=== PATIENT | male | born 1960 | race African-American/Black ===

== ENCOUNTER 2016-07-13 12:31 | Inpatient (IN) | payer OTHER ==
[2016-07-13 12:41] VITALS: BMI 34.0
--- NOTE | 2016-07-13 12:54 | PDOC ---
History of Present Illness <Michelle Orr - Last Filed: 07/13/16 13:45> - General History Source: Patient Exam Limitations: No Limitations - History of Present Illness Initial Comments: 07/13/16 12:54 The patient is a 56 year old male with significant past medical history of diabetes, DVT, and PE (on Edoxaban) who presents emergency department with a possible stroke. The patient states that he noted approximately 1 week ago, that his right hand felt weaker than his left hand He also noted last week that he had a moment when his speech was "low" He ate a banana and states that this resolved Pt was seen at the clinic on [facility] (for a routine check up) At some point, the patient noted again that his speech was "low". He is not clear on when this happened. He thinks it has improved He does not know how long his face has been asymmetric. His family is unable to clearly state if his face looked this way this morning He denies headache or head trauma 07/13/16 12:55 PMH: Diabetes, DVT, PE PSH: Filter placement, Right knee surgery, Left ankle surgery Medications: patient does not know (family member bringing medications, he knows he is not on Coumadin) ALL: NO KNOWN DRUG ALLERGIES Social: denies drug or cigarette use GENERAL/CONSTITUTIONAL: No: fever, chills, weakness, loss of appetite. HEAD, EYES, EARS, NOSE AND THROAT: No: change in vision, ear pain, discharge, sore throat, throat swelling. CARDIOVASCULAR: No: chest pain, lightheadedness, palpitations, syncope RESPIRATORY: No: cough, shortness of breath, wheezing, hemoptysis, stridor. GASTROINTESTINAL: No: nausea, vomiting, diarrhea, abdominal cramping, rectal bleeding, constipation. GENITOURINARY: No: dysuria, hematuria, frequency, urgency, flank pain. MUSCULOSKELETAL: No: back pain, neck pain, joint pain, muscle swelling or pain SKIN AND BREASTS: No: lesions, pallor, rash or easy bruising. 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 GENERAL: The patient is in no acute distress. HEAD: Normal with no signs of trauma. EYES: PERRLA, EOMI, sclera anicteric, conjunctiva clear. ENT: Ears normal, nares patent, oropharynx clear without exudates. Moist mucous membranes. NECK: Normal range of motion, supple LUNGS: Breath sounds equal, clear to auscultation bilaterally. No wheezes, and no crackles. HEART:Regular rate and rhythm, normal S1 and S2 without murmur, rub or gallop. ABDOMEN: Soft, nontender, normoactive bowel sounds. No guarding, no rebound. No masses palpable. EXTREMITIES: Normal range of motion, no edema. No clubbing or cyanosis. No erythema, or tenderness. NEUROLOGICAL: please see NIHSS MUSCULOSKELETAL: Back non-tender to palpation, no CVA tenderness SKIN: Warm, Dry, normal turgor, no rashes or lesions noted. 07/13/16 13:22 <[place] - Last Filed: 07/16/16 08:45> - General Chief Complaint: CVA/TIA Stated Complaint: RT ARM NUMBNESS Time Seen by Provider: 07/13/16 12:43 Past History <Michelle Orr - Last Filed: 07/13/16 13:45> - Past Medical History Diabetes: Yes (iddm) Other medical history: dvt - Psycho/Social/Smoking Cessation Hx Anxiety: No Suicidal Ideation: No Smoking History: Never smoked Have you smoked in the past 12 months: No Information on smoking cessation initiated: No Hx Alcohol Use: No Drug/Substance Use Hx: No Substance Use Type: None <[place] - Last Filed: 07/16/16 08:45> - Past Medical History Allergies/Adverse Reactions: Allergies Allergy/AdvReac Type Severity Reaction Status Date / Time No Known Allergies Allergy Verified 07/13/16 12:33 Home Medications: Ambulatory Orders Atorvastatin Ca [Lipitor] 20 mg PO HS 07/13/16 Docusate Sodium 100 mg PO DAILY 07/13/16 Edoxaban Tosylate [Savaysa] 60 mg PO DAILY 07/13/16 Furosemide [Lasix] 40 mg PO DAILY 07/13/16 Gabapentin 300 mg PO BID 07/13/16 Insulin (LOG) Aspart [NovoLOG -] 0 unit SQ DAILY 07/13/16 Insulin Degludec [Tresiba Flextouch U-100] 100 unit SQ ASDIR 07/13/16 Losartan Potassium 50 mg PO DAILY 07/13/16 Metformin HCl [Metformin HCl ER] 500 mg PO BID 07/13/16 Nateglinide [Starlix (Nf)] 120 mg PO TID 07/13/16 *Physical Exam - Vital Signs Last Vital Signs Temp Pulse Resp BP Pulse Ox 98.6 F 74 18 164/94 100 07/13/16 12:36 07/13/16 12:36 07/13/16 12:36 07/13/16 12:36 07/13/16 12:36 <Michelle Orr - Last Filed: 07/13/16 13:45> - Vital Signs Last Vital Signs Temp Pulse Resp BP Pulse Ox 98.6 F 74 18 164/94 100 07/13/16 12:36 07/13/16 12:36 07/13/16 12:36 07/13/16 12:36 07/13/16 12:36 <[place] - Last Filed: 07/16/16 08:45> NIH Stroke Scale - Last Known Well Date/Time & Onset Date Last Known Well: 07/13/16 Time Last Known Well: 12:00 - Initial Evaluation Level of consciousness: Alert Ask patient the month and their age: Answers both correctly Ask patient to open & close eyes; make fist and let go: Obeys both correctly Best gaze (horizontal eye movement): Normal Visual field testing: No visual field loss Facial paresis (Show teeth/raise eyebrows/close eyes tight): Minor paralysis ( flattened nasolabial fold, asymmetry on smiling) Motor Function: Left Arm: Normal Motor Function: Right Arm: Normal (extends arm 90 (or 45) degrees for 10 seconds without drift Motor Function: Left Leg: Normal (extends leg 30 degrees for 5 seconds without drift) Motor Function: Right Leg: Normal (extends leg 30 degrees for 5 seconds without drift) Limb Ataxia: No ataxia Sensory(Use pinprick test arms,legs,trunk,face/side to side): Normal Best language (Describe picture, name items, read sentences): No Aphasia Dysarthria (read several words): Mild to moderate slurring of words Extinction and Inattention: No abnormality - Total Score NIH Stroke Scale Score: 2 <[place] - Last Filed: 07/16/16 08:45> tPA Exclusion Checklist 0-3hr - Time Elapsed Date last known well: 07/13/16 Time last known well: 12:00 Elaspsed time: 2 Day(s) and 20 Hour(s) and 40 Minutes - Thrombolytic Therapy Candidate Is the patient eligible for Thrombolytic Therapy?: No - Exclusion Criteria 0-3hr SBP greater than 185 or DBP greater than 110mmHg despite tx: No Recent IC/spinal surgery,head trauma or stroke w/in last 3mo: No Hx of previous IC hemorrhage, IC neoplasm, AVM or aneurysm: No Active internal bleeding: No Blding diathesis(low plt ct, inc PTT,INR>1.7 or use of NOAC): Yes Symptoms suggest subarachnoid hemorrhage: No CT demonstrates multilobar infarct(>1/3 cerebral hemiphere): No Arterial puncture at noncompressible site in previous 7 days: No Blood glucose concentration less than 50mg/dL (2.7mmol/L): No - Relative Exclusion Criteria 0-3h Life expectancy <1yr/severe co-morbid illness/[employer] on admit: No : No Patient/family refused: No Rapid improvement: Yes Stroke severity too mild: Yes Recent acute NM (w/in previous 3 months): No Seizure at onset with postictal residual neuro impairments: No Major surgery or serious trauma w/in previous 14 days: No Recent GI or hemorrhage (w/in previous 21 days): No - Ineligibility reason(s) Reasons No tPA given: See reason(s) noted above <[place] - Last Filed: 07/16/16 08:45> Heart Score/ECG Review #1 ECG reviewed & interpreted by me at: 15:33 07/13/16 15:33 Sinus rhythm, rate of 66 bpm, axis nml No ST elevations or depressions T waves upright <[place] - Last Filed: 07/16/16 08:45> Critical Care Time/MDM Note - Medical Decision Making Note: 07/13/16 13:43 EXAM: Head CT INTERPRETED BY: Dr. Jaffe REVIEWED BY: Dr. West IMPRESSION: No CT evidence of acute intracranial pathology. EXAM: CXR INTERPRETED BY: Dr. Ambrocio REVIEWED BY: Dr. West IMPRESSION: Weak inspiration. Increased central markings with large heart. Documentation prepared by Michelle Orr, acting as medical front desk specialist for [place] MD. <Michelle Orr - Last Filed: 07/13/16 13:45> Total Critical Care Time: 35 Critical Care Statement: The care of this patient involved high complexity decision making to prevent further life threatening deterioration of the patient 's condition and/or to evalute & treat vital organ system(s) failure or risk of failure. - Medical Decision Making Note: 07/13/16 12:53 We have activated Code Lamas Head CT: No ICH 07/13/16 13:20 Pt called me to re evaluate him He is having speech difficulties He is answering is very short sentences and states he is confused 07/13/16 13:21 07/13/16 13:22 Laboratory Tests 07/13/16 12:55 WBC 5.8 Hgb 16.7 D Hct 50.8 H Plt Count 188 Neutrophils % 46.7 D Lymphocytes % 37.7 D Laboratory Tests 07/13/16 07/13/16 12:55 12:55 INR 1.04 Sodium 141 Potassium 4.2 Chloride 104 Carbon Dioxide 28 BUN 11 Creatinine 1.0 Random Glucose 128 H D Alkaline Phosphatase 63 Creatine Kinase 226 D Creatine Kinase Index 0.6 CK-MB (CK-2) 1.414 Troponin I < 0.02 07/13/16 13:35 Pt re assessed, his speech has improved These events were reviewed with Dr. 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
[2016-07-13 13:03] LABS: BASOPHIL 0.8 % (0-2.0); EOSINOPHIL 4.8 % (0-4.5); MCH 30.3 pg (25.7-33.7); MCHC 32.9 g/dl (32.0-35.9); MEAN CELL VOLUME 92.3 fl (80-96); MEAN PLT VOLUME 7.9 fl (7.5-11.1); NEUTROPHILS 46.7 % (42.8-82.8); PLATELET COUNT 188 K/MM3 (134-434); RDW 13.6 % (11.9-15.9); WHITE BLOOD COUNT 5.8 K/mm3 (4.0-10.0)
[2016-07-13 13:14] LABS: INR 1.04 (0.82-1.09); PROTHROMBIN TIME (PATIENT) 11.4 SEC (9.98-11.88)
[2016-07-13 13:30] LABS: ALBUMIN 3.7 g/dl (3.4-5.0); ALK PHOS 63 U/L (45-117); ANION GAP 9 (8-16); BILIRUBIN,TOTAL 0.7 mg/dL (0.2-1.0); CALCIUM 8.8 mg/dL (8.5-10.1); CO2 28 mmol/L (21-32); GLUCOSE,RANDOM 128 mg/dL (74-106); SGOT/AST 18 U/L (15-37); SGPT/ALT 30 U/L (12-78); TOT PROT 8.6 g/dl (6.4-8.2)
[2016-07-13 13:32] LABS: TROPONIN I < 0.02 ng/ml (0.00-0.05)
--- NOTE | 2016-07-13 14:06 | CONSULT ---
Consult Consult Specialty:: Neurology Reason for Consultation:: Right hemiparesis - History of Present Illness Chief Complaint: Right side weakness History of Present Illness: 56 year old man, history of DVTs and PE with IVC filter, ?on anticoagulation, diabetes, presents to ED with new onset of right side weakness. On further questioning, patient believes his symptoms have been ongoing for one week. He states that he noted an episode one week where he had some speech difficulties and has noted one week of right arm weakness. The patient reports being on anticoagulation, but does not recall the name. In ED CT head no acute findings. - History Source History Provided By: Patient - Alcohol/Substance Use Hx Alcohol Use: No - Smoking History Smoking history: Never smoked Have you smoked in the past 12 months: No Home Medications - Allergies Allergies/Adverse Reactions: Allergies Allergy/AdvReac Type Severity Reaction Status Date / Time No Known Allergies Allergy Verified 07/13/16 12:33 - Home Medications Home Medications: Ambulatory Orders Atorvastatin Ca [Lipitor] 20 mg PO HS 07/13/16 Docusate Sodium 100 mg PO DAILY 07/13/16 Edoxaban Tosylate [Savaysa] 60 mg PO DAILY 07/13/16 Furosemide [Lasix] 40 mg PO DAILY 07/13/16 Gabapentin 300 mg PO BID 07/13/16 Insulin (LOG) Aspart [NovoLOG -] 0 unit SQ DAILY 07/13/16 Insulin Degludec [Tresiba Flextouch U-100] 100 unit SQ ASDIR 07/13/16 Losartan Potassium 50 mg PO DAILY 07/13/16 Metformin HCl [Metformin HCl ER] 500 mg PO BID 07/13/16 Nateglinide [Starlix (Nf)] 120 mg PO TID 07/13/16 Review of Systems - Review of Systems Constitutional: reports: No Symptoms Eyes: reports: No Symptoms HENT: reports: No Symptoms Cardiovascular: reports: No Symptoms Respiratory: reports: No Symptoms Musculoskeletal: reports: No Symptoms Neurological: reports: Weakness Physical Exam Vital Signs: Vital Signs Temperature 98.6 F 07/13/16 12:36 Pulse Rate 74 07/13/16 12:36 Respiratory Rate 18 07/13/16 12:36 Blood Pressure 164/94 07/13/16 12:36 O2 Sat by Pulse Oximetry (%) 100 07/13/16 12:36 Constitutional: Yes: No Distress, Calm Eyes: Yes: Conjunctiva Clear, EOM Intact HENT: Yes: Atraumatic, Normocephalic Cardiovascular: Yes: S1, S2 Respiratory: Yes: Regular Neurological: Yes: Alert, Oriented, Other (right facial weakness, EOMI, visual tapia full right arm pronator drift NIHSS 2) Labs: CBC, BMP 07/13/16 12:55 07/13/16 12:55 Assessment/Plan 56 year old man, history of DVTs and PE with IVC filter, ?on anticoagulation, diabetes, presents to ED with new onset of right side weakness. On further questioning, patient believes his symptoms have been ongoing for one week. He states that he noted an episode one week where he had some speech difficulties and has noted one week of right arm weakness. The patient reports being on anticoagulation, but does not recall the name. In ED CT head no acute findings. Right hemiparesis, rule out stroke Not candidate for IV TPA due to time of onset CT head no acute findings Need clarification on medications - patient states he is on AC Recommend MRI brain without contrast Aspirin 81 mg daily for now until AC clarified Carotid doppler Echocardiogram Lipid panel, hgal1c PT/OT Tele monitoring Will follow
--- NOTE | 2016-07-13 14:59 | PDOC ---
ED Treatment Course - LABORATORY CBC & Chemistry Diagram: 07/13/16 12:55 07/13/16 12:55 - ADDITIONAL ORDERS Additional order review: Laboratory Results 07/13/16 07/13/16 07/13/16 12:55 12:55 12:55 INR 1.04 Sodium 141 Potassium 4.2 Chloride 104 Carbon Dioxide 28 Anion Gap 9 BUN 11 Creatinine 1.0 Creat Clearance w eGFR > 60 Random Glucose 128 H D Calcium 8.8 Total Bilirubin 0.7 D AST 18 D ALT 30 D Alkaline Phosphatase 63 Creatine Kinase 226 D Creatine Kinase Index 0.6 CK-MB (CK-2) 1.414 Troponin I < 0.02 Total Protein 8.6 H Albumin 3.7 Blood Type A POSITIVE Antibody Screen Negative 07/13/16 12:55 RBC 5.50 MCV 92.3 MCHC 32.9 RDW 13.6 MPV 7.9 Neutrophils % 46.7 D Lymphocytes % 37.7 D Monocytes % 10.0 Eosinophils % 4.8 H Basophils % 0.8 - RADIOLOGY Radiology Studies Ordered: Category Date Time Status HEAD CT (STROKE) [CT] Stat CT Scan 07/13/16 12:50 Completed CHEST X-RAY PORTABLE* [RAD] Stat Radiology 07/13/16 12:49 Completed *DC/Admit/Observation/Transfer Diagnosis at time of Disposition: TIA (transient ischemic attack) Qualifiers: Transient cerebral ischemia type: unspecified Qualified Code(s): G45.9 - Transient cerebral ischemic attack, unspecified - Discharge Dispostion Condition at time of disposition: Stable Admit: Yes
[2016-07-13] MEDS: SODIUM CHLORIDE 1,000 ML IV SCH ×2 (15:45→22:43)
--- NOTE | 2016-07-13 16:02 | HP ---
Addendum entered and electronically signed by Jemma Schaffer RES 07/13/16 17 :20: diet after swallow evaluation Original Note: CHIEF COMPLAINT: right jaw discomfort PCP:Dr. Aguayo? : patient states HISTORY OF PRESENT ILLNESS: 56 year old male presents with right sided jaw "tingling, weakness" x 1 day while at pharmacy getting prescriptions refilled. Patient states this came on suddenly. He also claims that he has been feeling weak for about one weak. PMHx includes DVT, PE (on A/c), diabetes on insulin, htn (takes medications occasionally). No other associated symptoms. Denies TURNER, sob, cp, LOC, dizziness , weakness unilaterally, leg swelling. ER course was notable for: (1)ECG nsr; no st-t changes; troponin x 1 negative (2)head CT; negative (3)CXR; cardiomegaly Recent Travel: PAST MEDICAL HISTORY: HTN, Diabetes, DVT,PE PAST SURGICAL HISTORY: ankle surgery; has metal in ankle Social History: Smoking:no Alcohol:rarely Drugs: no Family History: Allergies No Known Allergies Allergy (Verified 07/13/16 12:33) HOME MEDICATIONS: Home Medications Medication Instructions Recorded Atorvastatin Ca [Lipitor] 20 mg PO HS 07/13/16 Docusate Sodium 100 mg PO DAILY 07/13/16 Edoxaban Tosylate [Savaysa] 60 mg PO DAILY 07/13/16 Furosemide [Lasix] 40 mg PO DAILY 07/13/16 Gabapentin 300 mg PO BID 07/13/16 Insulin (LOG) Aspart [NovoLOG -] 0 unit SQ DAILY 07/13/16 Insulin Degludec [Tresiba 100 unit SQ ASDIR 07/13/16 Flextouch U-100] Losartan Potassium 50 mg PO DAILY 07/13/16 Metformin HCl [Metformin HCl ER] 500 mg PO BID 07/13/16 Nateglinide [Starlix (Nf)] 120 mg PO TID 07/13/16 REVIEW OF SYSTEMS CONSTITUTIONAL: Absent: fever, chills, diaphoresis, generalized weakness, malaise, loss of appetite, weight change HEENT: Absent: rhinorrhea, nasal congestion, throat pain, throat swelling, difficulty swallowing, mouth swelling, ear pain, eye pain, visual changes CARDIOVASCULAR: Absent: chest pain, syncope, palpitations, irregular heart rate, lightheadedness , peripheral edema RESPIRATORY: Absent: cough, shortness of breath, dyspnea with exertion, orthopnea, wheezing, stridor, hemoptysis GASTROINTESTINAL: Absent: abdominal pain, abdominal distension, nausea, vomiting, diarrhea, constipation, melena, hematochezia GENITOURINARY: Absent: dysuria, frequency, urgency, hesitancy, hematuria, flank pain, genital pain MUSCULOSKELETAL: Absent: myalgia, arthralgia, joint swelling, back pain, neck pain SKIN: Absent: rash, itching, pallor HEMATOLOGIC/IMMUNOLOGIC: Absent: easy bleeding, easy bruising, lymphadenopathy, frequent infections ENDOCRINE: Absent: unexplained weight gain, unexplained weight loss, heat intolerance, cold intolerance NEUROLOGIC: Positive:paresthesias, focal weakness Absent: headache,dizziness, unsteady gait, seizure, mental status changes, bladder or bowel incontinence PSYCHIATRIC: Absent: anxiety, depression, suicidal or homicidal ideation, hallucinations. PHYSICAL EXAMINATION Vital Signs - 24 hr 07/13/16 07/13/16 14:31 14:35 Pulse Rate 82 Pulse Rate [ 82 Left] Respiratory 17 Rate Blood Pressure 175/91 [Arm] O2 Sat by Pulse 100 100 Oximetry (%) GENERAL: Awake, alert, and fully oriented, in no acute distress. HEAD: Normal with no signs of trauma. EYES: Pupils equal, round and reactive to light, extraocular movements intact, sclera anicteric, conjunctiva clear. No lid lag. EARS, NOSE, THROAT: Ears normal, nares patent, oropharynx clear without exudates. Moist mucous membranes. NECK: Normal range of motion, supple without lymphadenopathy, JVD, or masses. LUNGS: decreased breath sounds base, clear to auscultation bilaterally. No wheezes, and no crackles. No accessory muscle use. HEART: Regular rate and rhythm, normal S1 and S2 without murmur, rub or gallop. ABDOMEN: Soft, obese,distended, normoactive bowel sounds, no guarding, no rebound, no masses. No hepatomegaly or splenomegaly. MUSCULOSKELETAL: Normal range of motion at all joints. No bony deformities or tenderness. No CVA tenderness. UPPER EXTREMITIES: 2+ pulses, warm, well-perfused. No cyanosis. No clubbing. No peripheral edema. LOWER EXTREMITIES: 2+ pulses, warm, well-perfused. No calf tenderness. No peripheral edema. NEUROLOGICAL: -facial sensation intact; -right sided facial droop; -eyes did not close fully; -hearing normal -tongue towards right; -phonation is slowed; -head turning and shoulder shrugging wnl; -mild pronator drif tot he right; -4/5 hand c application developer left; 5/5 right -b/l leg strength 5/5 -sensory intact - gait not assessed PSYCHIATRIC: Cooperative. Good eye contact. Appropriate mood and affect. SKIN: Warm, dry, normal turgor, no rashes or lesions noted, normal capillary refill. Current Medications Generic Name Dose Route Start Last Admin Trade Name Isaiah PRN Reason Stop Dose Admin Aspirin 81 mg 07/14/16 10:00 Asa - PO DAILY [facility] Atorvastatin Calcium 20 mg 07/13/16 22:00 Lipitor - PO HS [facility] Docusate Sodium 100 mg 07/14/16 10:00 Colace - PO DAILY [facility] Furosemide 40 mg 07/14/16 10:00 Lasix - PO DAILY [facility] Gabapentin 300 mg 07/13/16 22:00 Neurontin - PO BID [facility] Sodium Chloride 1,000 mls @ 100 mls/hr 07/13/16 15:30 07/13/16 15:45 Normal Saline - IV 100 mls/hr ASDIR [facility] Administration Insulin Aspart 1 vial 07/13/16 16:30 07/13/16 16:40 Novolog Vial Sliding Scale - SQ Not Given ACHS [facility] Protocol Insulin Detemir 10 units 07/13/16 22:00 Levemir Vial SQ HS SHELLIE Losartan Potassium 50 mg 07/14/16 10:00 Cozaar - PO DAILY [facility] Non-Formulary Medication 60 mg 07/14/16 10:00 Edoxaban Tosylate [Savaysa] PO DAILY [facility] ASSESSMENT/PLAN: 56 yea old male with a PMH, htn, diabetes type II, hx of DVT and PE on anticoagulation, present with right sided jaw "funny feeling", along wtih right sided facial droop while at pharmacy getting medications. Bp on admission 173/ 91 on admission. #Right facial droop secondary to CVA -no tpa due to unknown duration on symptoms -MRI showing acute parietal lobe infacrt -already on edaoxaban 60mg daily -no need for aspirin; already on AC; will increase risk for bleed -neuro check -swallow eval -echo -carotid doppler -physical therapy -neurology consult #diabetes kym II: -hold home meds -levemir 10U HS- -insulin ss achs #hypertension: -continue cozarr 50mg po daily -continue furosemide 40mg qd #hyperlipidemia: -continue lipitor 20mg po hs #hs of DVT/PE: -on AC, has IVC filter FEN: Fluids: oral Electrolytes: wnl Diet: diabetic VTE: on AC Disposition: med surg Problem List - Problem (1) CVA (cerebrovascular accident) Code(s): I63.9 - CEREBRAL INFARCTION, UNSPECIFIED (2) HLD (hyperlipidemia) Code(s): E78.5 - HYPERLIPIDEMIA, UNSPECIFIED (3) Hx of deep venous thrombosis Code(s): Z86.718 - PERSONAL HISTORY OF OTHER VENOUS THROMBOSIS AND EMBOLISM (4) Parietal lobe infarction Code(s): I63.8 - OTHER CEREBRAL INFARCTION (5) Diabetes 1.5, managed as type 2 Code(s): E13.9 - OTHER SPECIFIED DIABETES MELLITUS WITHOUT COMPLICATIONS Visit type - Emergency Visit Emergency Visit: Yes ED Registration Date: 07/13/16 Care time: The patient presented to the Emergency Department on the above date and was hospitalized for further evaluation of their emergent condition. - New Patient This patient is new to me today: Yes Date on this admission: 07/13/16 - Critical Care Critical Care patient: No
--- NOTE | 2016-07-13 16:29 | PN ---
Teaching Attending Note Name of Resident: Jemma Schaffer ATTENDING PHYSICIAN STATEMENT I saw and evaluated the patient. I reviewed the resident's note and discussed the case with the resident. I agree with the resident's findings and plan as documented. SUBJECTIVE: This is a 56-year-old man with a history of HTN, type 2 DM, DVT who comes to the ER today with difficulty speaking and right face weakness. He and his family are unclear about when symptoms started, but he has been having some symptoms for about one week. OBJECTIVE: Vital Signs Period Temp Pulse Resp BP Sys/Galvan Pulse Ox Last 24 Hr 98.6 F 74-82 17-18 164-175/91-94 100-100 HEART: S1 S2, RRR LUNGS: Clear ABDOMEN: Obese, soft, non-tender, non-distended, normal BS EXTREMITIES: No edema NEUROLOGICAL: Alert, oriented, right facial droop, tongue deviated to right, speech slurred, mild right grasp weakness, mild right pronator drift ASSESSMENT AND PLAN: This is a 56-year-old man with a history of HTN, type 2 DM, DVT who presented to the ER today complaining of difficulty speaking and right face weakness. On exam he has, mild dysarthria, right facial weakness, and mild RUE weakness. Head CT is unremarkable 1. Right facial weakness, RUE weakness and dysarthria secondary to CVA, acute vs subacute - Continue aspirin, Lipitor - Check lipid profile - Carotid dopplers - Echocardiogram - MRI of brain - Swallow evaluation - PT/OT/ST 2. Hypertension - Continue Cozaar, Lasix 3. Hyperlipidemia - Continue Lipitor 4. Type 2 diabetes mellitus - Hold Metformin, Starlix - Levemir - Fingersticks with Novolog sliding scale 5. History of DVT - Patient says he is on anticoagulation and has IVC filter
[2016-07-13] MEDS: INSULIN SLIDING SCALE (NOVOLOG) 1 VIAL SQ SCH ×2 (16:40→22:32)
[2016-07-13 21:57] LABS: URINE APPEARANCE CLEAR; URINE BILIRUBIN NEGATIVE (NEGATIVE); URINE BLOOD NEGATIVE (NEGATIVE); URINE COLOR LTYELLOW; URINE GLUCOSE (UA) NEGATIVE (NEGATIVE); URINE KETONE NEGATIVE (NEGATIVE); URINE LEUK ESTERASE NEGATIVE (NEGATIVE); URINE NITRITE NEGATIVE (NEGATIVE); URINE PROTEIN NEGATIVE (NEGATIVE); URINE UROBILINOGEN NEGATIVE E.U./dl (0.2-1.0)
[2016-07-13] MEDS ORDERED: INSULIN DETEMIR 100 UNITS/ML MDV SQ SCH (22:00)
[2016-07-13] MEDS: GABAPENTIN 300 MG CAPSULE (FP) PO SCH (22:31)
[2016-07-13] MEDS: ATORVASTATIN CA 20 MG TABLET (FP) PO SCH (22:32)
[2016-07-14] MEDS: INSULIN SLIDING SCALE (NOVOLOG) 1 VIAL SQ SCH ×4 (06:27→21:17)
[2016-07-14 07:32] LABS: BASOPHIL 0.6 % (0-2.0); MCH 30.3 pg (25.7-33.7); MCHC 32.7 g/dl (32.0-35.9); MEAN CELL VOLUME 92.6 fl (80-96); MEAN PLT VOLUME 8.3 fl (7.5-11.1); NEUTROPHILS 40.6 % (42.8-82.8); PLATELET COUNT 185 K/MM3 (134-434); WHITE BLOOD COUNT 5.5 K/mm3 (4.0-10.0)
[2016-07-14 07:39] LABS: INR 1.09 (0.82-1.09)
--- NOTE | 2016-07-14 08:02 | PN ---
Progress Note, Physician - Current Medication List Current Medications: Active Medications Atorvastatin Calcium (Lipitor -) 20 mg PO HS [facility] Last Admin: 07/13/16 22:32 Dose: 20 mg Docusate Sodium (Colace -) 100 mg PO DAILY SHELLIE Furosemide (Lasix -) 40 mg PO DAILY SHELLIE Gabapentin (Neurontin -) 300 mg PO BID [facility] Last Admin: 07/13/16 22:31 Dose: 300 mg Sodium Chloride (Normal Saline -) 1,000 mls @ 100 mls/hr IV ASDIR [facility] Last Admin: 07/13/16 22:43 Dose: 100 mls/hr Insulin Aspart (Novolog Vial Sliding Scale -) 1 vial SQ ACHS [facility] PRN Reason: Protocol Last Admin: 07/14/16 06:27 Dose: Not Given Losartan Potassium (Cozaar -) 50 mg PO DAILY [facility] Non-Formulary Medication (Edoxaban Tosylate [Savaysa]) 60 mg PO DAILY [facility] - Objective Vital Signs: Vital Signs Temperature 98.0 F 07/14/16 06:00 Pulse Rate 59 L 07/14/16 06:00 Respiratory Rate 18 07/14/16 06:00 Blood Pressure 117/73 07/14/16 06:00 O2 Sat by Pulse Oximetry (%) 98 07/14/16 06:00 Constitutional: Yes: Well Nourished, No Distress, Calm Eyes: Yes: WNL, Conjunctiva Clear HENT: Yes: WNL, Atraumatic, Normocephalic Neck: Yes: WNL, Supple, Trachea Midline Cardiovascular: Yes: WNL, Regular Rate and Rhythm Respiratory: Yes: WNL, Regular, CTA Bilaterally Gastrointestinal: Yes: WNL, Normal Bowel Sounds Musculoskeletal: Yes: WNL Extremities: Yes: WNL Edema: No Integumentary: Yes: WNL Neurological: Yes: Alert, Oriented, Dysarthria, Facial Droop, Weakness (4/5 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) ...Motor Strength: WNL Psychiatric: Yes: WNL Labs: CBC, BMP 07/14/16 06:30 INR, PTT INR 1.09 (0.82-1.09) 07/14/16 06:30 Impression/Plan Impression/Plan: 56 year old man with DVT x2 s/p IVC filter on full dose anticoagulation, diabetes on insulin, htn admitted for left sided ocippital stroke -CVA seen on MRI -still has dysarthia and weakness of right hand but states symptoms are improving -order echo to rule out thrombus -follow up speech/swallow eval (pt states he is currently having no problems swallowing) -follow up physical therapy -follow up Hb A1C and lipid panel Visit type - Emergency Visit Emergency Visit: Yes ED Registration Date: 07/13/16 Care time: The patient presented to the Emergency Department on the above date and was hospitalized for further evaluation of their emergent condition. - New Patient This patient is new to me today: Yes Date on this admission: 07/14/16 - Critical Care Critical Care patient: No
[2016-07-14 08:04] LABS: ALBUMIN 3.2 g/dl (3.4-5.0); ALK PHOS 56 U/L (45-117); ANION GAP 8 (8-16); BILIRUBIN,TOTAL 0.8 mg/dL (0.2-1.0); CALCIUM 8.2 mg/dL (8.5-10.1); CHOLESTEROL 208 mg/dL (50-200); CO2 27 mmol/L (21-32); CREATININE 0.9 mg/dL (0.7-1.3); GLUCOSE,RANDOM 88 mg/dL (74-106); LDL CHOLESTEROL (ONLY SJRH) 137 mg/dL (5-100); MAGNESIUM 2.2 mg/dL (1.8-2.4); PHOSPHOROUS 3.6 mg/dL (2.5-4.9); SGOT/AST 15 U/L (15-37); SGPT/ALT 24 U/L (12-78); THYROID STIMULATING HORMONE 1.89 uIU/ml (0.358-3.74); TOT PROT 7.5 g/dl (6.4-8.2)
[2016-07-14] MEDS ORDERED: ASPIRIN 81 MG CHEWABLE TABLETS PO SCH (10:00)
[2016-07-14] MEDS: SODIUM CHLORIDE 1,000 ML IV SCH (10:00)
[2016-07-14] MEDS ORDERED: ASPIRIN COATED 81 MG TABLET.EC PO SCH (10:00)
[2016-07-14] MEDS: GABAPENTIN 300 MG CAPSULE (FP) PO SCH ×2 (10:25→21:15)
[2016-07-14] MEDS: DOCUSATE SODIUM 100 MG CAPSULE (FP) PO SCH (10:26)
[2016-07-14] MEDS: FUROSEMIDE 40 MG TABLET (FP) PO SCH (10:26)
[2016-07-14] MEDS: LOSARTAN POTASSIUM 50 MG TABLET (FP) PO SCH (10:26)
--- NOTE | 2016-07-14 12:00 | PN ---
Progress Note (short form) - Note Progress Note: Neurology follow up note Consult Specialty:: Neurology Reason for Consultation:: Right hemiparesis - History of Present Illness Chief Complaint: Right side weakness History of Present Illness: 56 year old man, history of DVTs and PE with IVC filter, ?on anticoagulation, diabetes, presents to ED with new onset of right side weakness. On further questioning, patient believes his symptoms have been ongoing for one week. He states that he noted an episode one week where he had some speech difficulties and has noted one week of right arm weakness. The patient reports being on anticoagulation, but does not recall the name. In ED CT head no acute findings. 07/14 Patient seen and examined Overall some improvement in right side weakness No new complaints - History Source History Provided By: Patient - Alcohol/Substance Use Hx Alcohol Use: No - Smoking History Smoking history: Never smoked Have you smoked in the past 12 months: No Home Medications - Allergies Allergies/Adverse Reactions: Allergies Allergy/AdvReac Type Severity Reaction Status Date / Time No Known Allergies Allergy Verified 07/13/16 12:33 - Home Medications Home Medications: Ambulatory Orders Atorvastatin Ca [Lipitor] 20 mg PO HS 07/13/16 Docusate Sodium 100 mg PO DAILY 07/13/16 Edoxaban Tosylate [Savaysa] 60 mg PO DAILY 07/13/16 Furosemide [Lasix] 40 mg PO DAILY 07/13/16 Gabapentin 300 mg PO BID 07/13/16 Insulin (LOG) Aspart [NovoLOG -] 0 unit SQ DAILY 07/13/16 Insulin Degludec [Tresiba Flextouch U-100] 100 unit SQ ASDIR 07/13/16 Losartan Potassium 50 mg PO DAILY 07/13/16 Metformin HCl [Metformin HCl ER] 500 mg PO BID 07/13/16 Nateglinide [Starlix (Nf)] 120 mg PO TID 07/13/16 Review of Systems - Review of Systems Constitutional: reports: No Symptoms Eyes: reports: No Symptoms HENT: reports: No Symptoms Cardiovascular: reports: No Symptoms Respiratory: reports: No Symptoms Musculoskeletal: reports: No Symptoms Neurological: reports: Weakness Physical Exam Constitutional: Yes: No Distress, Calm Eyes: Yes: Conjunctiva Clear, EOM Intact HENT: Yes: Atraumatic, Normocephalic Cardiovascular: Yes: S1, S2 Respiratory: Yes: Regular Neurological: Yes: Alert, Oriented, Other (right facial weakness, ?dysarthria, EOMI, visual tapia full right arm pronator drift NIHSS 2) Assessment/Plan 56 year old man, history of DVTs and PE with IVC filter, ?on anticoagulation, diabetes, presents to ED with new onset of right side weakness. On further questioning, patient believes his symptoms have been ongoing for one week. He states that he noted an episode one week where he had some speech difficulties and has noted one week of right arm weakness. In ED CT head no acute findings. Left parietal lobe stroke, NIHSS 2 Not candidate for IV TPA due to time of onset CT head no acute findings MRI brain without contrast- left parietal lobe stroke Continue AC, continue statin Carotid doppler no significant stenosis Echocardiogram pending Lipid panel 137, hgal1c 11 Recommend tight glycemic control PT/OT If echocardiogram within normal limits, ok from neuro to follow up as outpatient
[2016-07-14] MEDS: PATIENT'S OWN MEDICATION (NON-FORMULARY) (Edoxaban Tosylate [Savaysa] 60 MG) PO SCH (13:52)
[2016-07-14] MEDS ORDERED: INSULIN (NOVOLOG) ASPART 100 UNITS/ML 10ML VIAL ONE (21:14)
[2016-07-14] MEDS: ATORVASTATIN CA 20 MG TABLET (FP) PO SCH (21:15)
--- NOTE | 2016-07-15 02:40 | HOSP ---
Subjective - Review of Symptoms Events since last encounter: Paged because pt was desaturating with oxygen saturation at 70% after falling asleep. HR also slowed down to 35 bpm. Pt states he has never been diagnosed with KELY but does snore and gasps for air even at home while he sleeps. He is AAOX3, in no acute distress. He denies any symptoms at this time, denies light- headedness, dizziness, CP, SOB at this time. Bipap for night time use ordered for patient. Physical Examination Vital Signs: Vital Signs Temperature 97.9 F 07/15/16 02:31 Pulse Rate 55 L 07/15/16 02:31 Respiratory Rate 20 07/15/16 02:31 Blood Pressure 115/66 07/15/16 02:31 O2 Sat by Pulse Oximetry (%) 96 07/15/16 00:00 Labs: CBC, BMP 07/14/16 06:30 07/14/16 06:30 Visit type - Emergency Visit Emergency Visit: Yes ED Registration Date: 07/13/16 Care time: The patient presented to the Emergency Department on the above date and was hospitalized for further evaluation of their emergent condition. - New Patient This patient is new to me today: Yes Date on this admission: 07/18/16 - Critical Care Critical Care patient: No
[2016-07-15] MEDS: INSULIN SLIDING SCALE (NOVOLOG) 1 VIAL SQ SCH ×4 (06:24→22:42)
[2016-07-15] MEDS: DOCUSATE SODIUM 100 MG CAPSULE (FP) PO SCH (09:12)
[2016-07-15] MEDS: GABAPENTIN 300 MG CAPSULE (FP) PO SCH ×2 (09:12→22:42)
[2016-07-15] MEDS: FUROSEMIDE 40 MG TABLET (FP) PO SCH (09:13)
[2016-07-15] MEDS: LOSARTAN POTASSIUM 50 MG TABLET (FP) PO SCH (09:13)
[2016-07-15] MEDS: PATIENT'S OWN MEDICATION (NON-FORMULARY) (Edoxaban Tosylate [Savaysa] 60 MG) PO SCH (09:14)
--- NOTE | 2016-07-15 12:01 | CONSULT ---
Admitting History and Physical - Smoking History Smoking history: Never smoked Have you smoked in the past 12 months: No - Alcohol/Substance Use Hx Alcohol Use: No History - Admission Reason For Visit: STROKE - Hearing Hearing: Normal Hearing Aide: Yes With Patient: No Speech Evaluation - Communication Primary Language: MART[place] Communication: Yes: Within Normal Limits Oral Expression Ability: Yes: Mild Impairment (Right side facial droop with reduced sensation.) - Speech Production Apraxia: No Able to Make Needs Known: Yes: WNL Intelligibility: Yes: WNL - Speech Characteristics Voice Loudness: Normal Voice Pitch: Yes: Normal Voice Phonatory-based Quality: Yes: Normal Speech Pattern: Normal Articulation: Yes: Imprecise (Right side facial droop with reduced sensation.) Rate of Speech: Intact Voice Comment: WFL for environment. - Language/Auditory Comprehension Follows: Yes: 1 Stage Simple Commands (WFL), 2 Stage Simple Commands (WFL), Complex Commands (WFL) Observation: Able to respond to yes/no queries: Yes, Yes/No Confusion: No, Comprehends Conversational Speech: Yes, Benefits from Slow Speech: No (Not needed), Benefits from Repetiton: No (Not needed), Benefits from Increased Volume of Speech: No (Not needed) - Language/Verbal Expression Able to Respond to Simple Queries: Yes: WNL Able to Communicate Wants and Needs: Yes: WNL Functional Communication Status: Yes: WNL Aware of Errors: Yes Attempts to Correct Errors: Yes Use of Gestures: No Attention: Yes: Intact - 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 Jaw Position: Closed at Rest Against Resistance Opening: Weak (mild right side) Against Resistance Closing: Normal Pucker Lips: Droops Right Smile: Droops Right Lips, Comment: Mild right sided weakness Lingual Movement: Normal Lingual Speed of Movement: Normal Lingual Movement Strgth Against Opposition: Normal Lingual Movement Characteristics: Normal Lingual Comment: WFL for speech and swallowing purposes. m Soft Palate Description: Normal Color, Normal Arch Hard Palate Description: Normal Color, Normal Arch Gag Reflex: Strong Velopharyngeal Movement: Normal Laryngeal Elevation: WFL Laryngeal Movement: Able to Palpate Needs Assistance: No Rate of Intake: WFL Bolus Size: WFL Sensation: Bite Reflex Labial Seal: WFL Chewing: WFL Oral Prep Time: WFL A-P Transit: WFL Pocketing: None Timing of Swallow: WFL Odynophagia: Oral (secondary to reduced sensation of right side. Pt bite inside cheek with bolus.) Coughing/Throat Clear: No Change in Voice: No Other Findings/Remarks: 56 year old male seen at chairside on unit to rule out dysphagia. Pt is verbal, A&Ox3, cooperative. Pt presents with right side facial droop secondary to CVA?? ? with decreased sensation, HLD deep venous thrombosis, diabetes. Current diet : regular solids with thin liquids. Pt given po trials of puree and regular solids without assistance revealed good acceptance, adequate bolus control and transport. Pharyngeal swallows appear timely with no changes in voicing or respiration before during or after the swallow. Thin liquid trials were unremarkable for dysphagia or aspiration at this time. Recommendations - Speech Evaluation, Impression/Plan Impression: 56 yo male presents with right facial droop secondary to stroke. Reduced sensation is mildly affecting speech and mastication. Pt may benefit from speech therapy to strengthen facial muscles. 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 Short Term Goals: Tolerate regular solids and thin liquids without s/s of aspiration. - Dysphagia Impressions/Plan Swallowing Skills: [facility] Dysphagia Impressions: Minimal Impairment (reduced right side weakness.) Dysphagia Treatment Plan: Safe Rate, Other (Encourage thorough chewing.) Dysphagia Evaluation Summary: Pt presents with mild oral phase dysphagia secondary to right facial droop. Patient able to tolerate regular solids and thin liquids without s/s of aspiration at this time. Results given to furnace charger and pcp via chart. - Recommendations Diet Consistency: Regular Medication Administration: Whole with water Liquids: Thin Liquids
--- NOTE | 2016-07-15 15:41 | PN ---
Physical Exam: SUBJECTIVE: Patient seen and examined, no new complaints, right facial weakness. Denies chest pain, sob, fever, chills, n,n, weakness, changes on bowl or bladder. OBJECTIVE: Vital Signs Period Temp Pulse Resp BP Sys/Galvan Pulse Ox Last 24 Hr 97.8 F-98.3 F 53-66 20-21 115-149/65-95 93-98 GENERAL: The patient is awake, alert, and fully oriented, in no acute distress. HEAD: Normal with no signs of trauma. EYES: PERRL, extraocular movements intact, sclera anicteric, conjunctiva clear. No ptosis. ENT: Ears normal, nares patent, oropharynx clear without exudates, moist mucous membranes. NECK: Trachea midline, full range of motion, supple. LUNGS: Breath sounds equal, clear to auscultation bilaterally, no wheezes, no crackles, no accessory muscle use. HEART: Regular rate and rhythm, S1, S2 without murmur, rub or gallop. ABDOMEN: Soft, nontender, nondistended, normoactive bowel sounds, no guarding, no rebound, no hepatosplenomegaly, no masses. EXTREMITIES: 2+ pulses, warm, well-perfused, no edema. NEUROLOGICAL:right facial dropp, right pronatrer drift mild; right tongue deviation, strength equal b/l 5/5; sensation intact bl PSYCH: Normal mood, normal affect. SKIN: Warm, dry, normal turgor, no rashes or lesions noted Laboratory Results - last 24 hr 07/14/16 07/14/16 07/15/16 16:31 20:49 05:27 POC Glucometer 151 160 136 07/15/16 11:55 POC Glucometer 204 Active Medications Generic Name Dose Route Start Last Admin Trade Name Freq PRN Reason Stop Dose Admin Atorvastatin Calcium 40 mg 07/15/16 22:00 Lipitor - PO HS SHELLIE Docusate Sodium 100 mg 07/14/16 10:00 07/15/16 09:12 Colace - PO 100 mg DAILY SHELLIE Administration Furosemide 40 mg 07/14/16 10:00 07/15/16 09:13 Lasix - PO 40 mg DAILY SHELLIE Administration Gabapentin 300 mg 07/13/16 22:00 07/15/16 09:12 Neurontin - PO 300 mg BID SHELLIE Administration Insulin Aspart 1 vial 07/13/16 16:30 07/15/16 11:59 Novolog Vial Sliding Scale - SQ 4 units ACHS SHELLIE Administration Protocol Losartan Potassium 50 mg 07/14/16 10:00 07/15/16 09:13 Cozaar - PO 50 mg DAILY SHELLIE Administration Non-Formulary Medication 60 mg 07/14/16 14:00 07/15/16 09:14 Edoxaban Tosylate [Savaysa] PO 60 mg DAILY SHELLIE Administration ASSESSMENT/PLAN: 56 yea old male with a PMH, htn, diabetes type II, hx of DVT and PE on anticoagulation, present with right sided jaw "funny feeling", along wtih right sided facial droop while at pharmacy getting medications. Bp on admission 173/ 91 on admission. #Right facial droop secondary to CVA :parietal lobe infarct: improving -no tpa due to unknown duration on symptoms -MRI showing acute parietal lobe infacrt -already on edoxaban 60mg daily -no need for aspirin; already on AC; will increase risk for bleed -neuro check -swallow eval: able to pass solid and liquid -echo pending -carotid doppler -physical therapy -neurology consult/ can follow up as outpatient #diabetes kym II: -hold home meds -levemir 10U HS- -insulin ss achs #hypertension: -continue cozarr 50mg po daily -continue furosemide 40mg qd #hyperlipidemia: -continue lipitor 20mg po hs #hs of DVT/PE: -on AC, has IVC filter FEN: Fluids: oral Electrolytes: wnl Diet: diabetic VTE: on AC Disposition: pending echo; can dc if ok; follow up with neurology Problem List - Problems (1) CVA (cerebrovascular accident) Code(s): I63.9 - CEREBRAL INFARCTION, UNSPECIFIED (2) HLD (hyperlipidemia) Code(s): E78.5 - HYPERLIPIDEMIA, UNSPECIFIED (3) Hx of deep venous thrombosis Code(s): Z86.718 - PERSONAL HISTORY OF OTHER VENOUS THROMBOSIS AND EMBOLISM (4) Parietal lobe infarction Code(s): I63.8 - OTHER CEREBRAL INFARCTION (5) Diabetes 1.5, managed as type 2 Code(s): E13.9 - OTHER SPECIFIED DIABETES MELLITUS WITHOUT COMPLICATIONS Visit type - Emergency Visit Emergency Visit: Yes ED Registration Date: 07/13/16 Care time: The patient presented to the Emergency Department on the above date and was hospitalized for further evaluation of their emergent condition. - New Patient This patient is new to me today: No - Critical Care Critical Care patient: No
[2016-07-15] MEDS ORDERED: ATORVASTATIN CA 20 MG TABLET (FP) PO SCH (22:00)
[2016-07-15] MEDS ORDERED: INSULIN (NOVOLOG) ASPART 100 UNITS/ML 10ML VIAL ONE (22:39)
[2016-07-16] MEDS ORDERED: PT OWN MED DRAWER 7, Y5N ONE (01:16)
[2016-07-16] MEDS: INSULIN SLIDING SCALE (NOVOLOG) 1 VIAL SQ SCH (06:35)
[2016-07-16] MEDS ORDERED: INSULIN (NOVOLOG) ASPART 100 UNITS/ML 10ML VIAL ONE (07:02)
[2016-07-16] MEDS: DOCUSATE SODIUM 100 MG CAPSULE (FP) PO SCH (10:05)
[2016-07-16] MEDS: GABAPENTIN 300 MG CAPSULE (FP) PO SCH (10:05)
[2016-07-16] MEDS: LOSARTAN POTASSIUM 50 MG TABLET (FP) PO SCH (10:05)
[2016-07-16] MEDS: FUROSEMIDE 40 MG TABLET (FP) PO SCH (10:05)
[2016-07-16] MEDS: PATIENT'S OWN MEDICATION (NON-FORMULARY) (Edoxaban Tosylate [Savaysa] 60 MG) PO SCH (10:06)
[2016-07-16 11:15] VITALS: PULSE 59
--- NOTE | 2016-07-16 11:47 | PN ---
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 Reported to be tolerating reg diet/thin liquid. Selected Entries 07/14/16 07/14/16 07/14/16 10:06 13:38 18:30 Breakfast 100% Lunch 100% Supper 100% Temperature 07/15/16 07/16/16 07/16/16 18:25 01:00 06:00 Breakfast Lunch Supper 75% Temperature 98.3 F 97.8 F Laboratory Tests 07/14/16 06:30 WBC 5.5 Mild right facial weakness at rest. No dysarthria or aphasia noted. Good vocal quality.
[2016-07-16 12:46] VITALS: BP 133/74; TEMP 98.2
--- NOTE | 2016-07-16 12:47 | PN ---
Teaching Attending Note Name of Resident: Jemma Schaffer ATTENDING PHYSICIAN STATEMENT I saw and evaluated the patient. I reviewed the resident's note and discussed the case with the resident. I agree with the resident's findings and plan as documented. SUBJECTIVE:currently asymptomatic. states his speech has improved significantly since admission. continues to have some RUE weakness. denies CP, SOB,fever, chills, N/V/C/D OBJECTIVE: Last Vital Signs Temp Pulse Resp BP Pulse Ox 97.8 F 59 L 20 143/79 96 07/16/16 06:00 07/16/16 11:14 07/16/16 06:00 07/16/16 06:00 07/16/16 11:15 General NAD Neuro R facial droop. RUE decreased strength. gait not assessed ASSESSMENT AND PLAN: 56yo M with PMH HTN, DM and DVT/PE with IVC filter on anticoagulation presented to the ER and was admitted for further evaluation of their emergent condition 1. Acute L parietal lobe infarct- clinically stable. speech and R hemiparesis improved. ambulated >200 feet with PT. assessed by speech pathologist and cleared for regular diet. will cont current anticoagulation. hold ASA. will need continued OT/PT as outpatient. cont statin. neuro follow up as outpatient 2. DM-A1c 11. improved here. will d/c on levemir 10 units QHS. iss. and metformin. instructed to monitor BGM closely and log them and to f/u with PMD in 2 days. will likely require further titration of insulin. 3. DVT/PE- on edoxaban 4. d/c home
--- NOTE | 2016-07-16 12:50 | PN ---
Progress Note (short form) - Note Progress Note: Neurology Progress Note (short form) 56 year old man, history of DVTs and PE with IVC filter, ?on anticoagulation, diabetes, presents to ED with new onset of right side weakness. On further questioning, patient believes his symptoms have been ongoing for one week. He states that he noted an episode one week where he had some speech difficulties and has noted one week of right arm weakness. The patient reports being on anticoagulation, but does not recall the name. In ED CT head no acute findings. 4/2 Patient seen and examined Overall some improvement in right side weakness No new complaints / No new events and no new seizures, resting comfortably. Active Medications Atorvastatin Calcium (Lipitor -) 40 mg PO HS [facility] Last Admin: 07/15/16 22:42 Dose: 40 mg Docusate Sodium (Colace -) 100 mg PO DAILY [facility] Last Admin: 07/16/16 10:05 Dose: 100 mg Furosemide (Lasix -) 40 mg PO DAILY [facility] Last Admin: 07/16/16 10:05 Dose: 40 mg Gabapentin (Neurontin -) 300 mg PO BID [facility] Last Admin: 07/16/16 10:05 Dose: 300 mg Insulin Aspart (Novolog Vial Sliding Scale -) 1 vial SQ ACHS [facility] PRN Reason: Protocol Last Admin: 07/16/16 06:35 Dose: 2 units Losartan Potassium (Cozaar -) 50 mg PO DAILY [facility] Last Admin: 07/16/16 10:05 Dose: 50 mg Non-Formulary Medication (Edoxaban Tosylate [Savaysa]) 60 mg PO DAILY [facility] Last Admin: 07/16/16 10:06 Dose: 60 mg Vital Signs Temperature 98.2 F 07/16/16 10:30 Pulse Rate 59 L 07/16/16 11:14 Respiratory Rate 18 07/16/16 10:30 Blood Pressure 133/74 07/16/16 10:30 O2 Sat by Pulse Oximetry (%) 96 07/16/16 11:15 Physical Exam Constitutional: Yes: No Distress, Calm Eyes: Yes: Conjunctiva Clear, EOM Intact HENT: Yes: Atraumatic, Normocephalic Cardiovascular: Yes: S1, S2 Respiratory: Yes: Regular Neurological: Yes: Alert, Oriented, Other (right facial weakness, ?dysarthria, EOMI, visual tapia full right arm pronator drift NIHSS 2) Assessment/Plan 56 year old man, history of DVTs and PE with IVC filter, ?on anticoagulation, diabetes, presents to ED with new onset of right side weakness. On further questioning, patient believes his symptoms have been ongoing for one week. He states that he noted an episode one week where he had some speech difficulties and has noted one week of right arm weakness. In ED CT head no acute findings. Left parietal lobe stroke, NIHSS 2 Not candidate for IV TPA due to time of onset CT head no acute findings MRI brain without contrast- left parietal lobe stroke Continue AC, continue statin Carotid doppler no significant stenosis Echocardiogram pending Lipid panel 137, hgal1c 11 Recommend tight glycemic control PT/OT
--- NOTE | 2016-07-16 17:34 | DS ---
Physical Exam: SUBJECTIVE: Patient seen and examined at bedside, weakness and facial droop has improved. Still with slight residual weakness according to patient. Denies Headache, lightheadedness, chest pain, sob, palpitations. OBJECTIVE: Vital Signs Period Temp Pulse Resp BP Sys/Galvan Pulse Ox Last 24 Hr 97.8 F-98.3 F 54-65 16-20 126-144/63-86 96-98 PHYSICAL EXAM GENERAL: The patient is awake, alert, and fully oriented, in no acute distress. HEAD: Normal with no signs of trauma. EYES: PERRL, extraocular movements intact, sclera anicteric, conjunctiva clear. ENT: Ears normal, nares patent, oropharynx clear without exudates, moist mucous membranes. NECK: Trachea midline, full range of motion, supple. LUNGS: Breath sounds equal, clear to auscultation bilaterally, no wheezes, no crackles, no accessory muscle use. HEART: Regular rate and rhythm, S1, S2 without murmur, rub or gallop. ABDOMEN: Soft, nontender, nondistended, normoactive bowel sounds, no guarding, no rebound, no hepatosplenomegaly, no masses. EXTREMITIES: 2+ pulses, warm, well-perfused, no edema. NEUROLOGICAL: Cranial nerves II through XII grossly intact. slowed speech, -facial sensation intact; -right sided facial droop; improved -eyes close fully -hearing normal -tongue towards right; improved -phonation is slowed; improved -head turning and shoulder shrugging wnl; -mild pronator drift to he right; improved -4/5 hand property controller left; 5/5 right -b/l leg strength 5/5 -sensory intact - gait wnl PSYCH: Normal mood, normal affect. SKIN: Warm, dry, normal turgor, no rashes or lesions noted. 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 Blood pressure on admission 173/91. #Right facial droop secondary to CVA :parietal lobe infarct: improved -no tpa due to unknown duration on symptoms -MRI showing acute parietal lobe infacrt -already on edoxaban 60mg daily -no need for aspirin; already on AC; will increase risk for bleed -neuro check -swallow eval: able to pass solid and liquid -echo wnl -carotid doppler wnl -physical therapy/OT as out patient 3x per week for right sided weakness -neurology follow up as outpatient #diabetes kym II: uncontrolled -levemir 10U HS- -insulin ss achs -continue metformin -speak to primary regarding tighter glycemic control #hypertension: -continue cozarr 50mg po daily -continue furosemide 40mg qd #hyperlipidemia: -continue lipitor 20mg po hs #hs of DVT/PE: -on AC, has IVC filter Minutes to complete discharge: 35 Discharge Summary Reason For Visit: STROKE Current Active Problems CVA (cerebrovascular accident) (Acute) Parietal lobe infarction (Acute) TIA (transient ischemic attack) (Acute) Diabetes 1.5, managed as type 2 (Chronic) HLD (hyperlipidemia) (Chronic) Hx of deep venous thrombosis (Chronic) Condition: Stable - Instructions Diet, Activity, Other Instructions: Mr. Back, you have experienced a stroke. We would like you to follow up with your primary physician as well as the neurologist regarding this condition. Please continue to take your recommended daily dose of your blood thinner. We do not advise taking daily aspirin due to the increasing effects of bleeding rather that preventing a second stroke, as long as you are taking your blood thinner. We are adjusting your diabetes medications, please see attached. Please discuss with your primary due to your blood sugar levels being uncontrolled upon admission. Monitor blood sugars closely, please keep a log of your sugars. Follow up with your primary in two day for further adjustment. If you experience any worsening of symptoms, including alter mental status, weakness, please return tot he emergency room. Referrals: Conrado Gu MD [Staff Physician] - Rod Rudolph [Primary Care Provider] - Disposition: HOME - Home Medications Comprehensive Discharge Medication List: Ambulatory Orders Docusate Sodium 100 mg PO DAILY 07/13/16 Edoxaban Tosylate [Savaysa] 60 mg PO DAILY 07/13/16 Furosemide [Lasix] 40 mg PO DAILY 07/13/16 Gabapentin 300 mg PO BID 07/13/16 Losartan Potassium 50 mg PO DAILY 07/13/16 Metformin HCl [Metformin HCl ER] 500 mg PO BID 07/13/16 Nateglinide [Starlix (Nf) -] 120 mg PO TID 07/13/16 Insulin (Levemir) [Levemir Flexpen -] 10 units SQ HS #1 pen 07/16/16 Insulin Sliding Scale [Novolog Vial Sliding Scale -] 1 vial SQ ACHS #1 units 07/29 Physical Therapy Order 1 each NR ASDIR #1 order 07/16/16 Problem List - Problems (1) CVA (cerebrovascular accident) Code(s): I63.9 - CEREBRAL INFARCTION, UNSPECIFIED (2) HLD (hyperlipidemia) Code(s): E78.5 - HYPERLIPIDEMIA, UNSPECIFIED (3) Hx of deep venous thrombosis Code(s): Z86.718 - PERSONAL HISTORY OF OTHER VENOUS THROMBOSIS AND EMBOLISM (4) Parietal lobe infarction Code(s): I63.8 - OTHER CEREBRAL INFARCTION (5) Diabetes 1.5, managed as type 2 Code(s): E13.9 - OTHER SPECIFIED DIABETES MELLITUS WITHOUT COMPLICATIONS This patient is new to me today: No Emergency Visit: Yes ED Registration Date: 07/13/16 Care time: The patient presented to the Emergency Department on the above date and was hospitalized for further evaluation of their emergent condition. Critical Care patient: No - Discharge Referral Referred to [facility] No
--- NOTE | 2016-07-16 21:57 | EKG ---
Test Reason : Blood Pressure : / mmHG Vent. Rate : 066 BPM Atrial Rate : 066 BPM P-R Int : 132 ms QRS Dur : 098 ms QT Int : 410 ms P-R-T Axes : 047 -25 029 degrees QTc Int : 429 ms NORMAL SINUS RHYTHM MINIMAL VOLTAGE CRITERIA FOR LVH, MAY BE NORMAL VARIANT BORDERLINE ECG WHEN COMPARED WITH ECG OF 08-MAR-2015 07:33, NO SIGNIFICANT CHANGE WAS FOUND Confirmed by ISAAC MADSEN, KAREN ([id number]) on 07/16/2016 9:56:37 PM Referred By: Confirmed By:KAREN GRAY MD
== END 2016-07-16 14:26 | disposition home or self-care (01) | DRG 66 ==
LOC: JER 12:31 → JERBED 14:24 → OBSVTOIN 15:25 → J4S 21:15
PROVIDERS: ADMIT Internal Medicine; ATTEND Internal Medicine
DX: I63.8 Other cerebral infarction (principal); R47.1 Dysarthria and anarthria; Z86.718 Personal history of other venous thrombosis and embolism; Z79.01 Long term (current) use of anticoagulants; E11.65 Type 2 diabetes mellitus with hyperglycemia; Z79.4 Long term (current) use of insulin; E78.5 Hyperlipidemia, unspecified; R29.810 Facial weakness
CPT/HCPCS: 36415; 70450-TC; 70551-TC; 71010-TC; 80053; 80061; 81003; 82550; 82553; 83036; 83721; 83735; 84100; 84443; 84484; 85025; 85610; 86850; 86900; 86901; 93005; 93010; 93306-TC; 93880-TC; 94660; 97116-GP; 97161-GP; 99285-25; G0378

== ENCOUNTER 2021-09-28 15:42 | Inpatient (IN) | payer OTHER ==
[2021-09-28 22:20] LABS: BASO % 0.7 % (0-2.0); EOS % 7.4 % (0-4.5); HEMATOCRIT 42.7 % (35.4-49); HEMOGLOBIN 14.2 GM/dL (11.7-16.9); LYMPH % 31.4 % (8-40); MCH 30.9 pg (25.7-33.7); MCHC 33.2 g/dl (32.0-35.9); MEAN CELL VOLUME 93.1 fl (80-96); MEAN PLT VOLUME 8.1 fl (7.5-11.1); MONO % 9.3 % (3.8-10.2); NEUT % 51.2 % (42.8-82.8); PLATELET COUNT 253 10^3/uL (134-434); RBC 4.59 M/mm3 (4.00-5.60); RDW 13.7 % (11.9-15.9); WHITE BLOOD COUNT 5.4 K/mm3 (4.0-10.0)
[2021-09-28 22:24] LABS: INR 1.17 (0.83-1.09); PROTHROMBIN TIME (PATIENT) 13.5 SEC (9.7-13.0)
[2021-09-28 22:27] LABS: ACTIVATED PTT 30.3 SECONDS (25.2-36.5)
[2021-09-28 22:39] LABS: CALCIUM 9.2 mg/dL (8.5-10.1)
[2021-09-28 22:40] LABS: ALBUMIN 3.3 g/dl (3.4-5.0); BLOOD UREA NITROGEN 14.5 mg/dL (7-18)
[2021-09-28 22:43] LABS: CREATININE 1.2 mg/dL (0.55-1.3)
[2021-09-28 22:44] LABS: BILIRUBIN,TOTAL 0.4 mg/dL (0.2-1); TOT PROT 7.7 g/dl (6.4-8.2)
[2021-09-29] MEDS ORDERED: ALBUTEROL SO4 HFA INHALER IH PRN (01:46)
[2021-09-29] MEDS ORDERED: BRIMONIDINE TARTRATE 0.15% OPHTHALMIC 5 ML BOTTLE OU SCH (02:00)
[2021-09-29] MEDS ORDERED: APIXABAN 5 MG TABLET PO ONE (02:00)
[2021-09-29] MEDS ORDERED: APIXABAN 5 MG TABLET ONE (02:06)
[2021-09-29 04:59] VITALS: BMI 33.4
[2021-09-29] MEDS ORDERED: DOCUSATE NA 100 MG/10 ML UNIT-DOSE CUPS PO PRN (06:08)
[2021-09-29] MEDS: INSULIN SLIDING SCALE (NOVOLOG) 1 VIAL SQ SCH ×4 (06:28→21:51)
[2021-09-29] MEDS ORDERED: HEPARIN NA (PORCINE) 5,000 UNITS/ML 1ML VIAL IVPUSH ONE (08:17)
[2021-09-29] MEDS ORDERED: HEPARIN NA (PORCINE) 5,000 UNITS/ML 1ML VIAL IVPUSH PRN ×2 (08:17)
[2021-09-29] MEDS ORDERED: HEPARIN INFUSION - 25,000 UNITS/500 ML INFUS.BAG IVPB SCH (08:30)
[2021-09-29 08:36] LABS: URINE APPEARANCE CLEAR; URINE BILIRUBIN NEGATIVE (NEGATIVE); URINE COLOR YELLOW; URINE GLUCOSE (UA) NEGATIVE (NEGATIVE); URINE KETONE NEGATIVE (NEGATIVE); URINE LEUK ESTERASE NEGATIVE (NEGATIVE); URINE NITRITE NEGATIVE (NEGATIVE); URINE PROTEIN NEGATIVE (NEGATIVE)
[2021-09-29] MEDS: LOSARTAN POTASSIUM 50 MG TABLET PO SCH (09:25)
[2021-09-29] MEDS ORDERED: PATIENT'S OWN MEDICATION (NON-FORMULARY) (Naloxegol Oxalate [Movantik] 25 MG Tablet) PO SCH (10:00)
[2021-09-29] MEDS ORDERED: APIXABAN 5 MG TABLET PO SCH ×2 (10:00)
[2021-09-29] MEDS ORDERED: PATIENT'S OWN MEDICATION (NON-FORMULARY) (Linaclotide [Linzess] 290 MCG Capsule) PO SCH (10:00)
[2021-09-29 11:39] LABS: BASO % 0.7 % (0-2.0); EOS % 6.8 % (0-4.5); HEMATOCRIT 41.8 % (35.4-49); HEMOGLOBIN 13.7 GM/dL (11.7-16.9); LYMPH % 32.9 % (8-40); MCH 30.6 pg (25.7-33.7); MCHC 32.8 g/dl (32.0-35.9); MEAN CELL VOLUME 93.1 fl (80-96); MEAN PLT VOLUME 8.2 fl (7.5-11.1); MONO % 9.7 % (3.8-10.2); NEUT % 49.9 % (42.8-82.8); PLATELET COUNT 245 10^3/uL (134-434); RBC 4.49 M/mm3 (4.00-5.60); RDW 13.6 % (11.9-15.9); WHITE BLOOD COUNT 5.4 K/mm3 (4.0-10.0)
[2021-09-29 12:44] LABS: BLOOD UREA NITROGEN 13.8 mg/dL (7-18); CALCIUM 9.1 mg/dL (8.5-10.1); CREATININE 0.9 mg/dL (0.55-1.3)
[2021-09-29] MEDS: HEPARIN INFUSION - 25,000 UNITS/500 ML INFUS.BAG IVPB SCH (15:42)
[2021-09-29] MEDS: BRIMONIDINE TARTRATE 0.15% OPHTHALMIC 5 ML BOTTLE OU SCH (15:43)
[2021-09-29] MEDS: ACETAMINOPHEN 325 MG TABLET (FP) PO PRN ×2 (16:58→22:01)
[2021-09-29] MEDS: SENNOSIDES 8.8 MG/5 ML BULK BOTTLE PO SCH (22:55)
[2021-09-30] MEDS: ACETAMINOPHEN 325 MG TABLET (FP) PO PRN ×2 (03:15→22:09)
[2021-09-30] MEDS: INSULIN SLIDING SCALE (NOVOLOG) 1 VIAL SQ SCH ×4 (06:42→22:17)
[2021-09-30] MEDS: HEPARIN INFUSION - 25,000 UNITS/500 ML INFUS.BAG IVPB SCH ×3 (07:48→17:38)
[2021-09-30] MEDS: LOSARTAN POTASSIUM 50 MG TABLET PO SCH (09:58)
[2021-09-30] MEDS: BRIMONIDINE TARTRATE 0.15% OPHTHALMIC 5 ML BOTTLE OU SCH (09:59)
[2021-09-30 10:25] LABS: CALCIUM 8.9 mg/dL (8.5-10.1)
[2021-09-30 10:26] LABS: ALBUMIN 3.1 g/dl (3.4-5.0); BLOOD UREA NITROGEN 11.2 mg/dL (7-18)
[2021-09-30 10:28] LABS: BILIRUBIN,TOTAL 0.5 mg/dL (0.2-1); TOT PROT 7.6 g/dl (6.4-8.2)
[2021-09-30] MEDS: SENNOSIDES 8.8 MG/5 ML BULK BOTTLE PO SCH (22:09)
[2021-09-30] MEDS: INSULIN (LEVEMIR) 100 UNITS/ML UNITS SQ SCH (22:17)
[2021-10-01] MEDS: INSULIN SLIDING SCALE (NOVOLOG) 1 VIAL SQ SCH ×4 (06:55→21:15)
[2021-10-01] MEDS: INSULIN (LEVEMIR) 100 UNITS/ML UNITS SQ SCH ×2 (06:55→21:15)
[2021-10-01] MEDS: HEPARIN INFUSION - 25,000 UNITS/500 ML INFUS.BAG IVPB SCH ×2 (07:48→17:36)
[2021-10-01 08:48] LABS: BASO % 0.6 % (0-2.0); EOS % 7.9 % (0-4.5); HEMATOCRIT 43.9 % (35.4-49); HEMOGLOBIN 14.8 GM/dL (11.7-16.9); LYMPH % 38.2 % (8-40); MCH 30.8 pg (25.7-33.7); MCHC 33.6 g/dl (32.0-35.9); MEAN CELL VOLUME 91.7 fl (80-96); MONO % 8.8 % (3.8-10.2); NEUT % 44.5 % (42.8-82.8); PLATELET COUNT 249 10^3/uL (134-434); RBC 4.79 M/mm3 (4.00-5.60); RDW 13.5 % (11.9-15.9); WHITE BLOOD COUNT 4.5 K/mm3 (4.0-10.0)
[2021-10-01 08:56] LABS: CALCIUM 8.8 mg/dL (8.5-10.1)
[2021-10-01 08:57] LABS: ALBUMIN 3.3 g/dl (3.4-5.0); BLOOD UREA NITROGEN 12.1 mg/dL (7-18); MAGNESIUM 2.3 mg/dL (1.8-2.4)
[2021-10-01 09:00] LABS: CREATININE 0.9 mg/dL (0.55-1.3); PHOSPHOROUS 4.2 mg/dL (2.5-4.9)
[2021-10-01 09:01] LABS: BILIRUBIN,TOTAL 0.5 mg/dL (0.2-1); TOT PROT 7.8 g/dl (6.4-8.2)
[2021-10-01] MEDS: BRIMONIDINE TARTRATE 0.15% OPHTHALMIC 5 ML BOTTLE OU SCH (09:34)
[2021-10-01] MEDS: LOSARTAN POTASSIUM 50 MG TABLET PO SCH (09:34)
[2021-10-01] MEDS: ACETAMINOPHEN 325 MG TABLET (FP) PO PRN (11:45)
[2021-10-01 15:33] LABS: INR 1.1 (0.83-1.09); PROTHROMBIN TIME (PATIENT) 12.7 SEC (9.7-13.0)
[2021-10-01 15:36] LABS: ACTIVATED PTT 51.2 SECONDS (25.2-36.5)
[2021-10-01] MEDS ORDERED: BISACODYL 5 MG TABLET.DR (FP) PO ONE (19:09)
[2021-10-01] MEDS: SENNOSIDES 8.8 MG/5 ML BULK BOTTLE PO SCH (21:16)
[2021-10-01 22:34] LABS: ACTIVATED PTT 46.1 SECONDS (25.2-36.5); INR 1.1 (0.83-1.09); PROTHROMBIN TIME (PATIENT) 12.7 SEC (9.7-13.0)
[2021-10-02] MEDS: ACETAMINOPHEN 325 MG TABLET (FP) PO PRN ×2 (01:20→09:31)
[2021-10-02] MEDS: HEPARIN INFUSION - 25,000 UNITS/500 ML INFUS.BAG IVPB SCH ×2 (02:50→16:49)
[2021-10-02] MEDS: INSULIN SLIDING SCALE (NOVOLOG) 1 VIAL SQ SCH ×3 (06:38→16:47)
[2021-10-02] MEDS: INSULIN (LEVEMIR) 100 UNITS/ML UNITS SQ SCH (06:38)
[2021-10-02] MEDS ORDERED: INSULIN (NOVOLOG) ASPART 100 UNITS/ML 10ML VIAL ONE ×2 (07:18→11:00)
[2021-10-02] MEDS ORDERED: LACTULOSE 20 GM/30 ML UDC (FOR ORAL USE ONLY) PO ONE (08:12)
[2021-10-02] MEDS: BRIMONIDINE TARTRATE 0.15% OPHTHALMIC 5 ML BOTTLE OU SCH (09:07)
[2021-10-02] MEDS: LOSARTAN POTASSIUM 50 MG TABLET PO SCH (09:07)
[2021-10-02 11:13] LABS: HEMATOCRIT 42.4 % (35.4-49); HEMOGLOBIN 14.1 GM/dL (11.7-16.9); MCH 30.9 pg (25.7-33.7); MCHC 33.3 g/dl (32.0-35.9); MEAN CELL VOLUME 92.7 fl (80-96); MEAN PLT VOLUME 8.6 fl (7.5-11.1); PLATELET COUNT 242 10^3/uL (134-434); RBC 4.57 M/mm3 (4.00-5.60); RDW 13.7 % (11.9-15.9); WHITE BLOOD COUNT 5.2 K/mm3 (4.0-10.0)
[2021-10-02 17:06] LABS: INR 1.11 (0.83-1.09); PROTHROMBIN TIME (PATIENT) 12.8 SEC (9.7-13.0)
[2021-10-02 17:09] LABS: ACTIVATED PTT 47.8 SECONDS (25.2-36.5)
[2021-10-02 18:03] VITALS: BP 139/52; PULSE 52; TEMP 98.3
== END 2021-10-02 18:30 | disposition home or self-care (01) | DRG 300 ==
LOC: JER 15:42 → JERBED 20:39 → J6S 09-29 04:41
PROVIDERS: ADMIT Internal Medicine; ATTEND Internal Medicine
DX: I82.412 Acute embolism and thrombosis of left femoral vein (principal); L97.318 Non-pressure chronic ulcer of right ankle with other specified severity; I82.421 Acute embolism and thrombosis of right iliac vein; I10 Essential (primary) hypertension; E11.65 Type 2 diabetes mellitus with hyperglycemia; K59.00 Constipation, unspecified; E66.9 Obesity, unspecified; Z68.33 Body mass index [BMI] 33.0-33.9, adult; K42.9 Umbilical hernia without obstruction or gangrene; K40.20 Bilateral inguinal hernia, without obstruction or gangrene, not specified as recurrent; Z86.718 Personal history of other venous thrombosis and embolism; Z86.711 Personal history of pulmonary embolism; Z91.14 Patient's other noncompliance with medication regimen; Z86.73 Personal history of transient ischemic attack (TIA), and cerebral infarction without residual deficits
CPT/HCPCS: 36415; 74174-TC; 80048; 80053; 81003; 82272; 82962; 83036; 83735; 84100; 85025; 85027; 85610; 85651; 85730; 86140; 86850; 86900; 86901; 87070; 87205; 93005; 93010; 93970-TC; 99285-25; C9803-CS; G0463-25; J1644; U0003; U0005

== ENCOUNTER 2024-03-15 03:10 | Emergency (ER) | payer OTHER ==
[2024-03-15 03:28] VITALS: BP 110/67; PULSE 79; RESP 18; TEMP 98.6; BMI 34.0
[2024-03-15] MEDS ORDERED: ACETAMINOPHEN INJECTION 100 ML ONE (03:54)
[2024-03-15] MEDS ORDERED: METOCLOPRAMIDE HCL INJECTION 10 MG/2 ML VIAL ONE (03:54)
[2024-03-15] MEDS: ACETAMINOPHEN 1000 MG/100 ML BAG IVPB ONE (04:10)
[2024-03-15] MEDS: LACTATED RINGERS SOLUTION 1000 ML INFUS.BAG IV ONE (04:10)
[2024-03-15] MEDS: METOCLOPRAMIDE HCL INJECTION 10 MG/2 ML VIAL IVPB ONE (04:10)
[2024-03-15 04:21] LABS: BASO % 0.5 % (0-2.0); HEMATOCRIT 44.6 % (35.4-49); MCH 31.1 pg (25.7-33.7); MCHC 33.6 g/dl (32.0-35.9); MEAN CELL VOLUME 92.7 fl (80-96); MEAN PLT VOLUME 7.6 fl (7.5-11.1); MONO % 13.8 % (3.8-10.2); NEUT % 49.7 % (42.8-82.8); PLATELET COUNT 252 10^3/uL (134-434); RBC 4.81 M/mm3 (4.00-5.60); RDW 13.6 % (11.9-15.9); WHITE BLOOD COUNT 6.8 K/mm3 (4.0-10.0)
[2024-03-15 04:48] LABS: POTASSIUM 3.2 mmol/L (3.5-5.1)
[2024-03-15 04:50] LABS: CALCIUM 9.3 mg/dL (8.5-10.1)
[2024-03-15 04:51] LABS: ALBUMIN 3.3 g/dl (3.4-5.0); BLOOD UREA NITROGEN 34.4 mg/dL (7-18); MAGNESIUM 2.2 mg/dL (1.8-2.4)
[2024-03-15 04:54] LABS: CREATININE 1.3 mg/dL (0.55-1.3)
[2024-03-15 04:55] LABS: BILIRUBIN,TOTAL 0.6 mg/dL (0.2-1)
[2024-03-15 04:56] LABS: TOT PROT 7.9 g/dl (6.4-8.2)
[2024-03-15] MEDS ORDERED: POTASSIUM CHLORIDE ORAL LIQUID 20 MEQ/15 ML ONE (05:22)
[2024-03-15] MEDS: POTASSIUM CHLORIDE ORAL LIQUID 20 MEQ/15 ML PO ONE (05:26)
== END 2024-03-15 05:43 | disposition home or self-care (01) ==
LOC: JER 03:10
PROC: 3E033NZ Introduction of Analgesics, Hypnotics, Sedatives into Peripheral Vein, Percutaneous Approach (ICD-10-PCS; principal; 2024-03-15)
PROC: 3E033GC Introduction of Other Therapeutic Substance into Peripheral Vein, Percutaneous Approach (ICD-10-PCS; 2024-03-15)
DX: G43.909 Migraine, unspecified, not intractable, without status migrainosus (principal); Z20.822 Contact with and (suspected) exposure to COVID-19
CPT/HCPCS: 0241U-QW; 36415; 80053; 83735; 85025; 99284-25; J0131

== ENCOUNTER 2024-05-03 16:16 | Emergency (ER) | payer OTHER ==
[2024-05-03 16:41] VITALS: BP 115/92; PULSE 69; RESP 17; TEMP 99.1; BMI 34.0
[2024-05-03 19:43] LABS: EOS % 9.3 % (0-4.5); HEMATOCRIT 44.4 % (35.4-49); HEMOGLOBIN 14.6 GM/dL (11.7-16.9); MEAN CELL VOLUME 94.2 fl (80-96); MEAN PLT VOLUME 7.6 fl (7.5-11.1); MONO % 9.9 % (3.8-10.2); NEUT % 47.8 % (42.8-82.8); PLATELET COUNT 247 10^3/uL (134-434); RBC 4.71 M/mm3 (4.00-5.60); RDW 14.1 % (11.9-15.9); WHITE BLOOD COUNT 6.1 K/mm3 (4.0-10.0)
[2024-05-03 19:50] LABS: INR 1.03 (0.83-1.09); PROTHROMBIN TIME (PATIENT) 11.6 SEC (9.7-13.0)
[2024-05-03 20:17] LABS: CALCIUM 9.5 mg/dL (8.5-10.1); CHLORIDE 92 mmol/L (98-107); SODIUM 130 mmol/L (136-145)
[2024-05-03 20:18] LABS: ALBUMIN 3.5 g/dl (3.4-5.0); ANION GAP 6 mmol/L (4-13); CO2 32 mmol/L (21-32); GLUCOSE,RANDOM 266 mg/dL (74-106); POTASSIUM 6.3 mmol/L (3.5-5.1)
[2024-05-03 20:21] LABS: CREATININE 1.5 mg/dL (0.55-1.3)
[2024-05-03 20:23] LABS: SGPT/ALT 39 U/L (13-61)
[2024-05-03 20:24] LABS: ALK PHOS 61 U/L (45-117)
[2024-05-03] MEDS: SODIUM CHLORIDE 0.9% 500 ML INFUS.BAG IV ONE (20:52)
[2024-05-03 20:55] LABS: BLOOD UREA NITROGEN 19.8 mg/dL (7-18)
[2024-05-03 21:02] LABS: BILIRUBIN,TOTAL 0.4 mg/dL (0.2-1)
[2024-05-03 21:13] LABS: SGOT/AST 78 U/L (15-37)
[2024-05-03 22:29] LABS: POTASSIUM 3.3 mmol/L (3.5-5.1)
[2024-05-03 22:31] LABS: CALCIUM 9.1 mg/dL (8.5-10.1)
[2024-05-03 22:32] LABS: ALBUMIN 3.3 g/dl (3.4-5.0); BLOOD UREA NITROGEN 19.9 mg/dL (7-18)
[2024-05-03 22:35] LABS: CREATININE 1.2 mg/dL (0.55-1.3)
[2024-05-03 22:37] LABS: BILIRUBIN,TOTAL 0.4 mg/dL (0.2-1); TOT PROT 7.5 g/dl (6.4-8.2)
== END 2024-05-04 01:09 | disposition home or self-care (01) ==
LOC: JERFT 16:16 → JER 16:16
DX: M25.512 Pain in left shoulder (principal); R05.9 Cough, unspecified; R06.02 Shortness of breath
CPT/HCPCS: 36415; 71046-TC-FY; 71275-TC; 73030-TC-LT-FY; 80053; 82550; 82553; 84484; 85025; 85610; 93005; 93010; 99285-25; Q9967